=== PATIENT | male | born 1965 | race Caucasian/White ===

== ENCOUNTER 2017-07-08 12:00 | Outpatient (CLI) | payer BC | END 2017-07-08 12:01 | disposition home or self-care (01) | LOC: BICMRI 12:00 | PROVIDERS: ATTEND Orthopaedic Surgery | DX: M25.511 Pain in right shoulder (principal); S46.811A Strain of other muscles, fascia and tendons at shoulder and upper arm level, right arm, initial encounter ==

== ENCOUNTER 2017-09-30 08:57 | Outpatient (CLI) | payer BC ==
[2017-09-30 10:04] LABS: #Eosinphils 0.1 thou/uL (0.0-0.7); #Lymphocytes 2.3 thou/uL (1.20-3.40); #Monocytes 0.7 thou/uL (0.11-0.59); #Neutrophils 3.6 thou/uL (1.40-6.50); %Basophils 0.7 % (0.0-1.0); %Eosinophils 1.9 % (0.0-10.0); %Lymphocytes 33.7 % (21.0-51.0); %Monocytes 9.8 % (0.0-10.0); %Neutrophils 53.9 % (42.0-75.0); Hemoglobin 15.5 g/dL (14.0-18.0); Mean Corpuscular HGB CONC 33.4 g/dL (32.0-36.0); Mean Corpuscular Hemoglobin 30.6 pg (27.0-31.0); Mean Corpuscular Volume 91.5 fl (80.0-94.0); Mean Platelet Volume 5.9 fL (7.4-10.4); Platelet Count 305 thou/uL (130-400); RBC Distribution Width 12.1 % (11.5-14.5); Red Blood Cell (RBC) Count 5.06 mill/uL (4.70-6.10); White Blood Cell (WBC) Count 6.7 thou/uL (4.8-10.8)
[2017-09-30 10:27] LABS: Anion Gap 13 mmol/L (10-20); BUN (Urea Nitrogen) 17 mg/dL (8.4-25.7); Calc. Creatinine Clearance 0 mL/min (70-130); Calcium 9.8 mg/dL (7.8-10.44); Carbon Dioxide 27 mmol/L (22-29); Chloride 103 mmol/L (98-107); Estimated GFR-MDRD 79; Glucose 90 mg/dL (70-105); Potassium 3.9 mmol/L (3.5-5.1); Sodium 139 mmol/L (136-145)
--- NOTE | 2017-10-01 08:07 | EKG ---
Test Reason : Blood Pressure : / mmHG Vent. Rate : 065 BPM Atrial Rate : 065 BPM P-R Int : 136 ms QRS Dur : 080 ms QT Int : 360 ms P-R-T Axes : 040 035 031 degrees QTc Int : 374 ms Normal sinus rhythm Cannot rule out Anterior infarct , age undetermined Poor anterior R wave progression Abnormal ECG No previous ECGs available Confirmed by DR. Radha GARZA ([id number]) on 10/01/2017 8:07:34 AM Referred By: KELSEA Confirmed By:DR. Radha GARZA
== END 2017-09-30 08:58 | disposition home or self-care (01) ==
LOC: LABBT 08:57
PROVIDERS: ATTEND Surgery
DX: Z01.818 Encounter for other preprocedural examination (principal); K40.90 Unilateral inguinal hernia, without obstruction or gangrene, not specified as recurrent; K42.9 Umbilical hernia without obstruction or gangrene
CPT/HCPCS: 80048; 85025; 93005; 93010

== ENCOUNTER 2017-10-03 10:02 | Day surgery (SDC) | payer BC ==
[2017-09-30 09:24] VITALS: BMI 27.9
[2017-10-03] MEDS ORDERED: CEFAZOLIN/Water 2 GM/20 ML SYRINGE ONE (11:29)
[2017-10-03] MEDS ORDERED: Bupivacaine/Epinephrine 0.25% 30 ML VIAL ONE (13:32)
[2017-10-03] MEDS ORDERED: Fentanyl 250 MCG/5 ML VIAL ONE (13:35)
[2017-10-03] MEDS ORDERED: HYDROcodone/Acetaminophen 5/325 mg Tablet ONE (16:53)
[2017-10-03] MEDS ORDERED: Lidocaine 1% PF 5 ML VIAL ONE (16:59)
[2017-10-03] MEDS ORDERED: Dexamethasone 20 MG/5 ML VIAL ONE (16:59)
[2017-10-03] MEDS ORDERED: Propofol 200 MG/20 ML VIAL ONE (16:59)
--- NOTE | 2017-10-03 18:50 | OP ---
DATE OF PROCEDURE: 10/03/2017 PREOPERATIVE DIAGNOSES: Left inguinal hernia, umbilical hernia. POSTOPERATIVE DIAGNOSES: Bilateral inguinal hernia and umbilical hernia. PROCEDURE: 1. Bilateral da [place] inguinal hernia repair with mesh. 2. Umbilical hernia repair with mesh. SURGEON: Delon Cardenas M.D. ANESTHESIA: General. ESTIMATED BLOOD LOSS: Minimal. COMPLICATIONS: None. SPECIMEN: None. FINDINGS: Bilateral inguinal hernia, umbilical hernia. TECHNIQUE: The patient was taken to the operating room and placed supine on the table. After genera l anesthetic was obtained, a Patiño was placed and the abdomen was shaved, prepped and draped in a joshua rile fashion. Curved incision made above the umbilicus. Cautery was used to dissect down to and sco re the fascia. Abdominal cavity entered bluntly using a Maren clamp followed by a 12-mm Ethicon Opti view trocar high flow pneumoperitoneum was obtained, the patient was placed in Trendelenburg position . The left and right abdominal 8 mm robot trocars were placed. All ports are docked to the robot. The surgeon goes to the console. The peritoneum was taken down in the bilateral groin. The bilatera l preperitoneal space was bluntly dissected to the pubic tubercle medially and to the anterior superi polly iliac crest laterally. The bilateral indirect inguinal hernias were dissected back up high onto the peritoneum. ProGrip mesh was brought in and its medial labeled aspect was placed over pubic tub ercle in the left groin. The mesh was laid out to completely cover the femoral direct and indirect a reas on the right. The Covidien mesh was brought in and its end-labeled Covidien 3DMax mesh was brou ght into the sterile field and placed into the abdominal cavity and the end-labeled medial aspect is placed over pubic tubercle medially and the mesh laid out to cover the femoral and direct and indirec t areas, 2-0 Vicryl was used to sew the right-sided mesh to pubic tubercle and to the posterior fasci a laterally. The bilateral peritoneum is reapproximated using Stratafix suture. All port sites were infiltrated using local anesthetic. All ports were removed under camera visualization without bleed ing. Pneumoperitoneum was let down. Covidien umbilical mesh was used to close the fascial defect/um bilical hernia at the umbilicus. The wound was irrigated. The fascia was closed loosely over the me sh using permanent braided suture. All incisions were irrigated and closed using 4-0 Monocryl and De rmabond. The patient went to recovery in stable condition. All instrument counts, needle counts, la p counts were correct.
== END 2017-10-03 18:48 | disposition home or self-care (01) ==
LOC: SDC 10:02
PROVIDERS: ATTEND Surgery
PROC: 0WUF0JZ Supplement Abdominal Wall with Synthetic Substitute, Open Approach (ICD-10-PCS; principal; 2017-10-03)
PROC: 0YUA4JZ Supplement Bilateral Inguinal Region with Synthetic Substitute, Percutaneous Endoscopic Approach (ICD-10-PCS; principal; 2017-10-03)
DX: K40.20 Bilateral inguinal hernia, without obstruction or gangrene, not specified as recurrent (principal); K42.9 Umbilical hernia without obstruction or gangrene; Z98.890 Other specified postprocedural states; Z87.891 Personal history of nicotine dependence
CPT/HCPCS: C1781; J1100; J2001; J2704; J3010

== ENCOUNTER 2017-10-03 23:54 | Emergency (ER) | payer BC | END 2017-10-04 00:23 | disposition home or self-care (01) | LOC: SCSER 23:54 | DX: K91.89 Other postprocedural complications and disorders of digestive system (principal); R39.198 Other difficulties with micturition | CPT/HCPCS: 99283 ==

== ENCOUNTER 2017-10-04 04:35 | Emergency (ER) | payer BC | END 2017-10-04 05:09 | disposition home or self-care (01) | LOC: SCSER 04:35 | DX: R33.9 Retention of urine, unspecified (principal) | CPT/HCPCS: 51702 ==

== ENCOUNTER 2017-10-09 01:21 | Emergency (ER) | payer BC ==
[2017-10-09 03:15] LABS: Bilirubin Negative (Negative); Blood, Urine Negative (Negative); Clarity Clear (Clear); Glucose, Urine (Dipstick) Negative (Negative); Leukocyte Negative (Negative); Nitrite Negative (Negative); Protein, Urine (Dipstick) Negative (Neg-Trace); Urobilinogen 0.2 mg/dL (0.2-1.0); pH, Urine 5.5 (5.0-9.0)
== END 2017-10-09 03:42 | disposition home or self-care (01) ==
LOC: SCSER 01:21
DX: R30.0 Dysuria (principal); Z79.899 Other long term (current) drug therapy
CPT/HCPCS: 51702; 81003; 87086

== ENCOUNTER 2019-03-15 07:25 | Outpatient (CLI) | payer OTHER ==
--- NOTE | 2019-03-15 09:22 | CT ---
CT ABDOMEN AND PELVIS WITH IV CONTRAST: History: Upper abdominal pain for the past three months, diverticulitis. History of prior hernia surg ben[place]. Comparison: CT thorax on 05/11/06. FINDINGS: There is a pleural based pulmonary nodule seen at the lateral aspect left lung base measuring 5 mm. T here was motion artifact on the prior CT thorax, but this nodule was seen on that exam. The lung bas es are otherwise clear. A single calcified granuloma is seen in the spleen. The liver, pancreas, bilateral adrenal glands, bilateral kidneys, abdominal aorta, partially distende d urinary bladder, and opacified bowel demonstrate a normal CT appearance. There is a retrocecal appendix identified which is normal in caliber. No free fluid, fluid collection, or lymphadenopathy is seen in the abdomen or pelvis. Minimal degenerative changes are seen in the spine. IMPRESSION: 1. No acute findings are seen in the abdomen or pelvis. 2. Post-surgical changes suggesting prior hernia repair at the level of the umbilicus. 3. Pleural based pulmonary nodule left lung base measuring 5 mm which is nonspecific and too small to characterize, but was seen on study in 2005. POS: [facility]
== END 2019-03-15 07:26 | disposition home or self-care (01) ==
LOC: BICCT 07:25
PROVIDERS: ATTEND Family Medicine
DX: K57.92 Diverticulitis of intestine, part unspecified, without perforation or abscess without bleeding (principal); R10.10 Upper abdominal pain, unspecified; R91.1 Solitary pulmonary nodule; Z98.890 Other specified postprocedural states
CPT/HCPCS: 74177

== ENCOUNTER 2020-01-15 12:41 | Outpatient (CLI) | payer OTHER ==
--- NOTE | 2020-01-15 14:17 | MRI ---
MR of the right shoulder without contrast INDICATION: Right shoulder pain. History of right shoulder injury months ago with a close nondisplac ed fracture of the glenoid. TECHNIQUE: Sagittal T1, axial and coronal PD fat sat, sagittal and coronal T2 fat sat images were obt ained of the right shoulder. COMPARISON: Right shoulder radiograph dated October 27, 2019 FINDINGS: Motion artifact limits image detail. 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 There is intrasubstance tear extension into the anterior to mid infraspinatus at the footprint with a high grade intrasubstance tear component involving the mid to posterior infraspinatus tendon on image 8 of series 7 measuring 1.9 x 1.[address] mediolateral and AP dimensions respectively. No muscular atrophy is evident. Glenohumeral joint: There is a mildly displaced osseous Bankart fragment involving the anterior and a nterior inferior glenoid articular surface measuring 2.3 x 1.2 cm. Articular surfaces depressed approximately 6 mm. The anterior inferior glenohumeral ligament appears intact to the osseous Bankart fragment. There is a mild-sized Hill-Sachs deformity involving the posterior superior humeral head. Glenoid labrum: There is a multidirectional tear involving the anterior inferior and anterior glenoid labrum. There is longitudinal tear extension into the inferior and posterior inferior glenoid labrum. Biceps tendon and biceps anchor: There is mild tendinosis of the intra-articular course of the biceps tendon. Biceps anchor complex appears intact. Acromion clavicular joint: normal Subacromial subdeltoid space: No appreciable fluid. Axillary region: No lymphadenopathy. Surrounding shoulder musculature: Normal. No evidence of atrophy or strain. IMPRESSION: 1. Hill-Sachs deformity and osseous Bankart lesion of the right glenohumeral joint. 2. Multidirectional tear involving the anterior inferior and anterior glenoid labrum. There is longit udinal tear extension into the inferior and posterior inferior glenoid labrum. 3. High-grade partial-thickness intrasubstance tears of the supraspinatus and infraspinatus at the fo otprint. 4. Mild biceps tendinosis
== END 2020-01-15 12:42 | disposition home or self-care (01) ==
LOC: SCSMRI 12:41
PROVIDERS: ATTEND Orthopaedic Surgery
DX: S42.144D Nondisplaced fracture of glenoid cavity of scapula, right shoulder, subsequent encounter for fracture with routine healing (principal); M77.9 Enthesopathy, unspecified; S46.011A Strain of muscle(s) and tendon(s) of the rotator cuff of right shoulder, initial encounter